=== PATIENT | female | born 1970 | race Caucasian/White ===

== ENCOUNTER 2017-12-21 10:04 | Emergency (ER) | payer OTHER ==
[~2017-12-21] VITALS: Ht 154.9 cm; Wt 59.9 kg
[2017-12-21] MEDS ORDERED: TESSALON PERLE100 M1 PO (14:08)
== END 2017-12-21 14:27 | disposition home or self-care (01) ==
LOC: ER 10:04
DX: J00 Acute nasopharyngitis [common cold] (principal); J10.1 Influenza due to other identified influenza virus with other respiratory manifestations

== ENCOUNTER 2021-02-27 12:30 | Outpatient (CLI) | payer OTHER ==
[~2021-02-27 12:30] MED LIST: TESSALON PERLE100 M1 PO
== END 2021-02-27 12:35 | disposition home or self-care (01) ==
LOC: LAB 12:30
PROVIDERS: ATTEND Internal Medicine Gastroenterology
DX: E03.9 Hypothyroidism, unspecified (principal); E78.5 Hyperlipidemia, unspecified; R10.84 Generalized abdominal pain; N39.0 Urinary tract infection, site not specified